=== PATIENT | female | born 1945 | race Caucasian/White ===

== ENCOUNTER 2023-11-07 11:42 | Emergency (ER) | payer OTHER ==
[~2023-11-07] VITALS: Ht 147.3 cm; Wt 61.4 kg
[2023-11-07 15:53] VITALS: BP 152/80; TEMP 97.8; O2SAT 97
== END 2023-11-07 15:54 | disposition home or self-care (01) ==
LOC: M ED 11:42 → EDBD 11:42 → M ED 15:54
DX: S80.11XA Contusion of right lower leg, initial encounter (principal); V49.40XA Driver injured in collision with unspecified motor vehicles in traffic accident, initial encounter; Y92.410 Unspecified street and highway as the place of occurrence of the external cause; Y93.89 Activity, other specified; Y99.8 Other external cause status; E78.5 Hyperlipidemia, unspecified; K21.9 Gastro-esophageal reflux disease without esophagitis